=== PATIENT | female | born 1955 | race Caucasian/White ===

== ENCOUNTER 2021-07-28 11:40 | Emergency (ER) | payer OTHER ==
[~2021-07-28 11:40] MED LIST: IBUPROFEN600 MG PO
[2021-07-28 12:40] LABS: HEMOGLOBIN 13.7 gm/dl (12.3-15.3); RED BLOOD COUNT 5.03 M/UL (4.00-5.10); WHITE BLOOD COUNT 6.6 K/UL (4.5-11.0)
[2021-07-28 13:20] LABS: BUN/CREATININE RATIO 17 (0-10)
== END 2021-07-28 14:00 | disposition home or self-care (01) ==
LOC: ER1 11:40
PROVIDERS: Physician Assistant
DX: R53.1 Weakness (principal); R53.83 Other fatigue; R42 Dizziness and giddiness
CPT/HCPCS: 70450; 71045; 80053; 82550; 82553; 84439; 84443; 84484; 85025; 93005; 99285